=== PATIENT | male | born 1980 | race African-American/Black ===

== ENCOUNTER 2024-05-18 15:14 | Emergency (ER) | payer OTHER ==
[2024-05-18 15:35] LABS: BASOPHILS ABSOLUTE AUTO 0.02 K/uL (0.00-0.20); BASOPHILS PERCENT AUTO 0.5 % (0.0-2.0); HEMATOCRIT 41.9 % (39.0-49.0); HEMOGLOBIN 14.9 g/dL (13.1-16.8); LYMPHOCYTES ABSOLUTE AUTO 0.38 K/uL (0.50-3.50); LYMPHOCYTES PERCENT AUTO 9.3 % (10.0-50.0); MEAN CORPUSCULAR HEMOGLOBIN 31.5 pg (28.2-33.3); MEAN CORPUSCULAR HGB CONC 35.6 g/dL (31.7-36.0); MEAN CORPUSCULAR VOLUME 88.6 fL (84.0-98.0); MONOCYTES ABSOLUTE AUTO 0.75 K/uL (0.00-1.00); MONOCYTES PERCENT AUTO 18.4 % (2.0-14.0); NEUTROPHILS ABSOLUTE AUTO 2.92 K/uL (1.40-7.00); NEUTROPHILS PERCENT AUTO 71.8 % (45.0-80.0); PLATELET COUNT,PLT 84 K/uL (150-350); RED BLOOD CELL COUNT 4.73 M/uL (4.33-5.41); RED CELL DISTRIBUTION WIDTH 14.8 % (11.2-14.1); WHITE BLOOD CELL COUNT,WBC 4.1 K/uL (4.0-10.2)
[2024-05-18 16:01] LABS: ALBUMIN 2.3 g/dL (3.4-5.0); ALKALINE PHOSPHATASE 159 IU/L (46-116); ASPARTATE AMNIOTRANSFERASE,AST 171 U/L (15-37); BILIRUBIN TOTAL 1.3 mg/dL (0.2-1.0); BLOOD UREA NITROGEN,BUN 4 mg/dL (7-18); CALCIUM 8.4 mg/dL (8.5-10.1); CARBON DIOXIDE,CO2 19.4 mmol/L (21.0-32.0); CHLORIDE,CL 91 mmol/L (98-107); CREATININE 1.27 mg/dL (0.51-1.17); ETHANOL BLOOD MEDICAL 0.001 g/dL (0.000-0.080); GLUCOSE RANDOM 237 mg/dL (70-99); PROTEIN TOTAL,TP 7.4 g/dL (6.4-8.2); SODIUM,NA 131 mmol/L (136-145)
[2024-05-18 16:09] LABS: ANION GAP 23.3 meq/L (7-15); ESTIMATED GFR 73 mL/min (>=60); POTASSIUM,K 2.7 mmol/L (3.5-5.1)
[2024-05-18] MEDS: Sodium Chloride 0.9% 1,000 ML IV ONE ×2 (16:12→17:45)
[2024-05-18] MEDS: Potassium Chloride Riders 10 MEQ in Premix Bag 1 BAG IV ONE (16:57)
[2024-05-18] MEDS: Iopamidol 612 MG/ML 100 ML Bottle IVPUSH ONE (17:02)
[2024-05-18 17:06] LABS: ALANINE AMINOTRANSFERASE,ALT 85 U/L (12-78)
[2024-05-18] MEDS: Potassium Bicarbonate/Cit Ac 20 MEQ Effervescent Tab PO ONE (17:20)
[2024-05-18] MEDS: Ondansetron 4 MG/2 ML SDV IVPUSH ONE (17:54)
[2024-05-18 19:17] LABS: BASOPHILS ABSOLUTE AUTO 0.01 K/uL (0.00-0.20); BASOPHILS PERCENT AUTO 0.2 % (0.0-2.0); HEMATOCRIT 37.2 % (39.0-49.0); HEMOGLOBIN 13.3 g/dL (13.1-16.8); LYMPHOCYTES ABSOLUTE AUTO 1.16 K/uL (0.50-3.50); LYMPHOCYTES PERCENT AUTO 19.8 % (10.0-50.0); MEAN CORPUSCULAR HEMOGLOBIN 31.7 pg (28.2-33.3); MEAN CORPUSCULAR HGB CONC 35.8 g/dL (31.7-36.0); MEAN CORPUSCULAR VOLUME 88.8 fL (84.0-98.0); MONOCYTES ABSOLUTE AUTO 1.14 K/uL (0.00-1.00); MONOCYTES PERCENT AUTO 19.4 % (2.0-14.0); NEUTROPHILS ABSOLUTE AUTO 3.56 K/uL (1.40-7.00); NEUTROPHILS PERCENT AUTO 60.6 % (45.0-80.0); PLATELET COUNT,PLT 77 K/uL (150-350); RED BLOOD CELL COUNT 4.19 M/uL (4.33-5.41); RED CELL DISTRIBUTION WIDTH 14.7 % (11.2-14.1); WHITE BLOOD CELL COUNT,WBC 5.9 K/uL (4.0-10.2)
[2024-05-18 19:20] LABS: APPEARANCE,URINE CLEAR; BILIRUBIN,URINE NEGATIVE (NEGATIVE); COLOR,URINE DARK YELLOW; GLUCOSE,URINE 100 mg/dL (NEGATIVE); KETONES,URINE 15 mg/dL (NEGATIVE); LEUKOCYTE ESTERASE,URINE NEGATIVE (NEGATIVE); NITRITE,URINE NEGATIVE (NEGATIVE); OCCULT BLOOD,URINE MODERATE (NEGATIVE); PH,URINE 6.5 (5.0-9.0); PROTEIN,URINE 100 mg/dL (NEGATIVE)
[2024-05-18] MEDS: Ketorolac 30 MG/ML SDV IVPUSH ONE (19:20)
[2024-05-18 19:33] LABS: AMPHETAMINES SCREEN, URINE NEGATIVE (NEGATIVE); BARBITURATE SCREEN,URINE NEGATIVE (NEGATIVE); BENZODIAZEPINES SCREEN,URINE NEGATIVE (NEGATIVE); COCAINE METABOLITES,URINE NEGATIVE (NEGATIVE); EDDP,URINE SCREEN NEGATIVE (NEGATIVE); METHAMPHETAMINES SCREEN, URINE NEGATIVE (NEGATIVE); TCA SCREEN,URINE NEGATIVE (NEGATIVE); THC SCREEN,URINE 50 NG/ML NEGATIVE (NEGATIVE)
[2024-05-18 19:34] LABS: BUPRENORPHINE SCREEN,URINE NEGATIVE (NEGATIVE); OXYCODONE SCREEN,URINE NEGATIVE (NEGATIVE)
[2024-05-18 19:36] LABS: BACTERIA,URINE FEW /HPF (NONE TO FEW); EPITHELIAL CELLS,URINE FEW /LPF; HYALINE CASTS,URINE FEW; MUCUS,URINE FEW /LPF (NEGATIVE); WBC,URINE 0-5 /HPF; YEAST,URINE FEW /HPF (NEGATIVE)
[2024-05-18 19:51] LABS: ALANINE AMINOTRANSFERASE,ALT 91 U/L (12-78); ALKALINE PHOSPHATASE 141 IU/L (46-116); ASPARTATE AMNIOTRANSFERASE,AST 157 U/L (15-37); BILIRUBIN TOTAL 1.3 mg/dL (0.2-1.0); BLOOD UREA NITROGEN,BUN 3 mg/dL (7-18); CALCIUM 7.4 mg/dL (8.5-10.1); CARBON DIOXIDE,CO2 26.1 mmol/L (21.0-32.0); CHLORIDE,CL 98 mmol/L (98-107); CREATININE 0.87 mg/dL (0.51-1.17); GLUCOSE RANDOM 162 mg/dL (70-99); PROTEIN TOTAL,TP 6.7 g/dL (6.4-8.2); SODIUM,NA 136 mmol/L (136-145)
[2024-05-18 19:52] LABS: ANION GAP 14.9 meq/L (7-15); ESTIMATED GFR 111 mL/min (>=60)
[2024-05-18 20:20] LABS: CORONAVIRUS COVID-19 NAA NEGATIVE (NEGATIVE); INFLUENZA A NAA NEGATIVE (NEGATIVE); INFLUENZA B NAA NEGATIVE (NEGATIVE); RESPIRATORY SYNCYTIAL VIR NAA NEGATIVE (NEGATIVE)
[2024-05-18] MEDS ORDERED: Take Home: traMADol 50 MG, 4 Tab Pack PO ONE (20:27)
[2024-05-18] MEDS: Take Home: Ondansetron 4 MG Tab.DIS, 5 Tab Pack PO ONE (20:54)
[2024-05-18] MEDS: Take Home: Naproxen 500 MG Tab, 4 Tab Pack PO ONE (20:54)
[2024-05-18] MEDS: Take Home: Potassium Chloride 10 MEQ Tab, 10 Tab Pack PO ONE (20:54)
== END 2024-05-18 20:58 | disposition home or self-care (01) ==
LOC: LL.ED 15:14
DX: E87.20 Acidosis, unspecified (principal); R74.02 Elevation of levels of lactic acid dehydrogenase [LDH]; E87.6 Hypokalemia; R73.9 Hyperglycemia, unspecified; Z86.69 Personal history of other diseases of the nervous system and sense organs; V48.5XXA Car driver injured in noncollision transport accident in traffic accident, initial encounter; Y93.89 Activity, other specified
CPT/HCPCS: 0241U; 36415; 70450; 71045; 71260; 72125; 74177; 80053; 80305-QW; 80307; 81001; 83605; 83690; 84484; 85025; 93005; 93010; 96361; 96365; 96375; 99284; 99285-25; A9270-GY; J1885; J2405; J3480; J7030; Q0162; Q9967